=== PATIENT | male | born 2000 | race American Indian/Alaskan Native ===

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

== ENCOUNTER 2022-05-12 16:22 | Emergency (ER) | payer MEDICAID ==
[2022-05-12] MEDS ORDERED: Sodium Chloride 0.9% 1,000 ML IV ONE (16:44)
[2022-05-12] MEDS ORDERED: Lidocaine 1% with EPINEPHrine 1:100,000 20 ML MDV INJECT ONE (16:45)
[2022-05-12] MEDS ORDERED: Ondansetron 4 MG/2 ML SDV IVPUSH ONE (16:45)
[2022-05-12 17:17] VITALS: BP 155/67; PULSE 65
[2022-05-12 17:29] LABS: ANION GAP 13.1 mEq/L (7-13)
[2022-05-12] MEDS ORDERED: Bacitracin Oint 1 GM U/D Packet TOP ONE (19:55)
[2022-05-12] MEDS ORDERED: cefTRIAXone 500 MG, Lidocaine 1% 1 ML IM ONE ×2 (20:05)
== END 2022-05-12 20:37 | disposition home or self-care (01) ==
LOC: DL.ED 16:22
DX: S02.2XXA Fracture of nasal bones, initial encounter for closed fracture (principal); S02.40DA Maxillary fracture, left side, initial encounter for closed fracture; S61.216A Laceration without foreign body of right little finger without damage to nail, initial encounter; S61.214A Laceration without foreign body of right ring finger without damage to nail, initial encounter; S61.212A Laceration without foreign body of right middle finger without damage to nail, initial encounter; F17.210 Nicotine dependence, cigarettes, uncomplicated; W20.8XXA Other cause of strike by thrown, projected or falling object, initial encounter; W22.09XA Striking against other stationary object, initial encounter
CPT/HCPCS: 12004; 36415; 70450; 70486; 72125; 73130; 80048; 80307; 83735; 85014; 85018; 96361; 96372; 96374; 99284; J0696; J2405; J7030

== ENCOUNTER 2024-06-30 13:05 | Emergency (ER) | payer MEDICAID ==
[2024-06-30] MEDS: Ketorolac 30 MG/ML SDV IM ONE (13:57)
[2024-06-30 14:25] VITALS: BP 147/89; PULSE 81
== END 2024-06-30 15:10 | disposition home or self-care (01) ==
LOC: DL.ED 13:05
DX: S69.91XA Unspecified injury of right wrist, hand and finger(s), initial encounter (principal); W22.8XXA Striking against or struck by other objects, initial encounter; Y93.89 Activity, other specified
CPT/HCPCS: 73130; 96372; 99284; J1885

== ENCOUNTER 2024-12-29 19:08 | Emergency (ER) | payer MEDICAID ==
[2024-12-29] MEDS: Ketorolac 30 MG/ML SDV IM ONE (19:37)
[2024-12-29 20:11] VITALS: BP 115/87; PULSE 80
== END 2024-12-29 20:08 | disposition home or self-care (01) ==
LOC: DL.ED 19:08
DX: S29.8XXA Other specified injuries of thorax, initial encounter (principal); W09.8XXA Fall on or from other playground equipment, initial encounter
CPT/HCPCS: 71045; 96372; 99283; J1885

== ENCOUNTER 2025-01-26 13:09 | Emergency (ER) | payer MEDICAID ==
[2025-01-26 13:49] VITALS: BP 120/87; PULSE 93
== END 2025-01-26 13:55 ==
LOC: DL.ED 13:09
DX: S01.111A Laceration without foreign body of right eyelid and periocular area, initial encounter (principal); Y04.0XXA Assault by unarmed brawl or fight, initial encounter; Y93.89 Activity, other specified
CPT/HCPCS: 12001; 12011; 99282; 99284; J2003